=== PATIENT | male | born 1950 | race Caucasian/White ===

== ENCOUNTER 2018-06-02 00:13 | Outpatient (CLI) | payer MEDICARE ==
[2018-06-02 12:59] LABS: #Basophils 0.1 thou/uL (0.0-0.2); #Eosinphils 0.2 thou/uL (0.0-0.7); #Lymphocytes 1.7 thou/uL (1.20-3.40); #Monocytes 0.4 thou/uL (0.11-0.59); #Neutrophils 2.9 thou/uL (1.40-6.50); %Basophils 1.3 % (0.0-1.0); %Eosinophils 2.9 % (0.0-10.0); %Lymphocytes 32.2 % (21.0-51.0); %Monocytes 7.7 % (0.0-10.0); %Neutrophils 55.9 % (42.0-75.0); Hemoglobin 15.9 g/dL (14.0-18.0); Mean Corpuscular HGB CONC 33.8 g/dL (32.0-36.0); Mean Corpuscular Volume 94.6 fL (78.0-98.0); Mean Platelet Volume 8.2 fL (7.4-10.4); Platelet Count 161 thou/uL (130-400); RBC Distribution Width 11.5 % (11.5-14.5); Red Blood Cell (RBC) Count 4.96 mill/uL (4.70-6.10); White Blood Cell (WBC) Count 5.2 thou/uL (4.8-10.8)
[2018-06-02 13:07] LABS: PTT 28.6 SEC (22.9-36.1); Prothrombin Time 13.3 SEC (12.0-14.7)
[2018-06-02 13:22] LABS: Anion Gap 11 mmol/L (10-20); BUN (Urea Nitrogen) 18 mg/dL (8.4-25.7); Calc. Creatinine Clearance 0 mL/min (70-130); Calcium 9.3 mg/dL (7.8-10.44); Carbon Dioxide 27 mmol/L (23-31); Chloride 109 mmol/L (98-107); Estimated GFR-MDRD Greater than 90; Glucose 81 mg/dL (80-115); Potassium 4.7 mmol/L (3.5-5.1); Sodium 142 mmol/L (136-145)
== END 2018-06-02 00:14 | disposition home or self-care (01) ==
LOC: LABBT 00:13
PROVIDERS: ATTEND Internal Medicine Cardiovascular Disease
DX: Z01.812 Encounter for preprocedural laboratory examination (principal); I51.9 Heart disease, unspecified
CPT/HCPCS: 80048; 85025; 85610; 85730

== ENCOUNTER 2018-06-04 08:48 | Day surgery (SDC) | payer MEDICARE ==
[2018-06-02 10:49] VITALS: BMI 23.5
[2018-06-04] MEDS ORDERED: PROPOFOL 20 ML ONE (09:52)
[2018-06-04] MEDS ORDERED: PROPOFOL 200 MG/20 ML VIAL ONE (12:21)
--- NOTE | 2018-06-04 21:43 | ECHO ---
DATE OF SERVICE: 06/04/18 PREPROCEDURE DIAGNOSIS: Right atrial mass. POSTPROCEDURE DIAGNOSIS: No atrial mass is seen. The Anesthesiology department provided with sedation for the patient. Please see their notes for det ails. After adequate sedation was achieved, transesophageal probe was inserted into the mouth and into the esophagus. Multiplanar views were then obtained. Left ventricle is normal size, normal wall thickness. Systolic function appears to be normal at 60-6 5% with no regional wall motion abnormalities. Left atrium is normal sized. Left atrial appendage is small sized but no mass or thrombus. Normal velocities. Right atrium is normal sized. There is no evidence of mass or thrombus. There is a prominent ridge. C atheter-like mass seen on transthoracic echo is not seen on this transesophageal echo. The right ventricle is normal size with normal RV systolic function. No masses or thrombus. Interatrial septum appears to be intact by color doppler. Aortic valve is mildly sclerotic but opens well. No stenosis or regurgitation. Mitral valve is structurally normal. Mild MR, no stenosis. Tricuspid valve is structurally normal. There is mild TR, no stenosis. Pulmonary valve is structurally normal. Mild PI. No stenosis. Thoracic aorta is with no significant atherosclerotic disease. No dilatations or dissections. CONCLUSIONS: 1. Normal systolic function, EF at 60-65%. 2. Aortic valve sclerosis. 3. Mild MR 4. Mild TR. 5. Mild PI. 6. Mass seen on transthoracic echo is not seen appreciated on transesophageal echo. No masses or thr ombus in right sided chambers or any of the cardiac chambers.
== END 2018-06-04 11:15 | disposition home or self-care (01) ==
LOC: CCL 08:48
PROVIDERS: ATTEND Internal Medicine Cardiovascular Disease
PROC: B245ZZ4 Ultrasonography of Left Heart, Transesophageal (ICD-10-PCS; principal; 2018-06-04)
DX: I11.9 Hypertensive heart disease without heart failure (principal); I35.8 Other nonrheumatic aortic valve disorders; E78.5 Hyperlipidemia, unspecified; F17.210 Nicotine dependence, cigarettes, uncomplicated; F17.290 Nicotine dependence, other tobacco product, uncomplicated; Z79.899 Other long term (current) drug therapy; Z88.8 Allergy status to other drugs, medicaments and biological substances; Z91.018 Allergy to other foods
CPT/HCPCS: 93312; J2704